=== PATIENT | female | born 1950 | race Two or more races ===

== ENCOUNTER 2023-06-19 10:44 | Emergency (ER) | payer OTHER ==
[~2023-06-19] VITALS: Ht 157.5 cm; Wt 73.0 kg
[2023-06-19 10:52] VITALS: TEMP 98.7; O2SAT 99
[2023-06-19] MEDS ORDERED: FENTANYL CITRATE/PF 50MCG/ML 2ML VIAL IM ONE (11:15)
[2023-06-19 11:22] VITALS: BP 170/72; PULSE 72; RESP 16
[2023-06-19] MEDS ORDERED: ACET-2708 MT (14:05)
[2023-06-19] MEDS ORDERED: NAPR-1129 MT (14:05)
== END 2023-06-19 15:42 | disposition home or self-care (01) ==
LOC: ER 10:44
DX: S42.302A Unspecified fracture of shaft of humerus, left arm, initial encounter for closed fracture (principal); G89.11 Acute pain due to trauma; W18.39XA Other fall on same level, initial encounter; Y93.89 Activity, other specified; Y92.89 Other specified places as the place of occurrence of the external cause; Y99.8 Other external cause status
CPT/HCPCS: 99284; 71045; 73030; 73060; 96372; J3010